=== PATIENT | male | born 1935 | race Caucasian/White ===

== ENCOUNTER 2017-04-18 11:34 | Day surgery (SDC) | payer MEDICARE, OTHER ==
[~2017-04-18] VITALS: Ht 162.6 cm; Wt 78.4 kg
[~2017-04-18 11:34] MED LIST: METF500T4 PO
[2017-04-18] MEDS ORDERED: PLAVIX (12:12)
[2017-04-18] MEDS ORDERED: BENAZEPRIL (12:12)
[2017-04-18] MEDS ORDERED: OLMESARTAN (12:12)
[2017-04-18] MEDS ORDERED: CARVEDILOL (12:12)
[2017-04-18] MEDS ORDERED: CLONIDINE (12:12)
[2017-04-18] MEDS ORDERED: NEXIUM (12:12)
[2017-04-18] MEDS ORDERED: FARXIGA (12:12)
[2017-04-18] MEDS ORDERED: AMLODIPINE (12:12)
[2017-04-18] MEDS ORDERED: GLIPIZIDE (12:12)
[2017-04-18] MEDS ORDERED: TRADJENTA (12:13)
[2017-04-18] MEDS ORDERED: METHIMAZOLE (12:13)
[2017-04-18] MEDS ORDERED: ROSUVASTATIN (12:13)
[2017-04-18 12:14] VITALS: Ht 162.6 cm; Wt 78.4 kg
[2017-04-18 12:53] VITALS: BP 146/71; PULSE 62; RESP 18
--- NOTE | 2017-04-18 13:10 | OPPN ---
Date/Time of Note Date/Time of Note DATE: 04/18/17 TIME: 13:09 Operative Report Preoperative Diagnosis Abdominal pain Chronic heartburn Postoperative Diagnosis Hiatal hernia and reflux esophagitis with erosions Gastritis with erosions Operation/Procedure Performed Esophagogastroduodenoscopy and biopsy Surgeon see signature line retail assistant None Anesthesia: MAC Estimated blood loss: none Transfusion Required none Specimen Gastric mucosal biopsy Grafts/Implants none Complications none ANDRIY MEDINA MD Apr 18, 2017 13:10
--- NOTE | 2017-04-18 13:10 | OPPN ---
Date/Time of Note Date/Time of Note DATE: 04/18/17 TIME: 13:09 Operative Report Preoperative Diagnosis Abdominal pain Chronic heartburn Postoperative Diagnosis Hiatal hernia and reflux esophagitis with erosions Gastritis with erosions Operation/Procedure Performed Esophagogastroduodenoscopy and biopsy Surgeon see signature line assistant production editor None Anesthesia: MAC Estimated blood loss: none Transfusion Required none Specimen Gastric mucosal biopsy Grafts/Implants none Complications none ANDRIY MEDINA MD Apr 18, 2017 13:10
--- NOTE | 2017-04-18 13:10 | OPPN ---
Date/Time of Note Date/Time of Note DATE: 04/18/17 TIME: 13:09 Operative Report Preoperative Diagnosis Abdominal pain Chronic heartburn Postoperative Diagnosis Hiatal hernia and reflux esophagitis with erosions Gastritis with erosions Operation/Procedure Performed Esophagogastroduodenoscopy and biopsy Surgeon see signature line assistant fitness manager None Anesthesia: MAC Estimated blood loss: none Transfusion Required none Specimen Gastric mucosal biopsy Grafts/Implants none Complications none ANDRIY MEDINA MD Apr 18, 2017 13:10
[2017-04-18 13:39] VITALS: BP 125/72; RESP 14
--- NOTE | 2017-04-19 05:58 | GILP ---
DATE OF PROCEDURE: NAME OF PROCEDURES: Esophagogastroduodenoscopy and biopsy. SURGEON: Andriy King MD. PREOPERATIVE DIAGNOSES: 1. Abdominal pain. 2. Chronic heartburn. POSTOPERATIVE DIAGNOSES: 1. Hiatal hernia. 2. Reflux esophagitis and erosions. 3. Gastritis with erosions. 4. Gastric mucosal biopsies were taken for Helicobacter pylori test. INDICATION FOR THE PROCEDURE: Mr. Greta Hanley is an 82-year-old male patient who had chronic heartburn and upper abdominal pain, not responding to therapy. The patient was scheduled for endosc opic examination for further evaluation. The procedure and possible complications were well explained to the patient. The patient understood and consented to the procedure. DESCRIPTION OF PROCEDURE: Under the influence of anesthesia, the gastroscope was carefully introduc ed into the esophagus and under direct vision, it was advanced to the stomach and through the pyloru s into the duodenal bulb and descending duodenum. FINDINGS: ESOPHAGUS: The patient had hiatal hernia with reflux esophagitis and erosions. STOMACH: He had gastritis with erosions. Gastric mucosal biopsies were taken for H. pylori test. Duodenum was normal. The patient tolerated the procedure very well and there was no complication from the procedure. At the end of the procedure, he was awake with stable vital signs and he was discharged home to the car e of his family. IMPRESSION: Please see postoperative diagnosis. PLAN: 1. Continue Nexium. 2. Add Zantac 300 mg p.o. at bedtime. 3. Await H. pylori test report. Dictated By: ANDRIY RUCKER/ELOY Conf#: [id number] DID#: [id number]
--- NOTE | 2017-04-19 12:43 | CONS ---
DATE OF ADMISSION: 04/18/2017 DATE OF CONSULTATION: Patient Name: ELHAM WOODRUFF I thank you very much for this kind referral. is an 82-year-old male patient who has been referred to me for further evaluation of upper abdominal pain and chronic heartburn, not responding to therapy with Nexium. He is not taking any nonsteroidal anti-inflammatory agents. His appetite has been good and there is no history of signif icant weight loss. The patient also complains of change in the bowel habit with constipation and bl oating. He had a colonoscopy done 5 years ago and no colon neoplasm was identified. He denies any history of rectal bleeding. No history of gallstones or liver disease. He is hypertensive. He has diabetes. No history of heart disease or lung problem or kidney disease. He has got hyperlipidemi a. He has hyperthyroidism. SOCIAL HISTORY: He is a nonsmoker, does not abuse alcohol. FAMILY HISTORY: No family history of gastrointestinal tract neoplasm. ALLERGIES: HE STATES HE IS ALLERGIC TO ASPIRIN. MEDICATIONS: 1. Nexium 40 mg p.o. daily. 2. Plavix 75 mg p.o. daily. 3. Olmesartan 40 mg p.o. daily. 4. Benazepril 20 mg p.o. daily. 5. Carvedilol 12.5 mg p.o. daily. 6. Amlodipine 40 mg p.o. daily. 7. Clonidine 0.1 mg patch daily. 8. Metformin 850 mg p.o. b.i.d. 9. Glipizide 10 mg p.o. daily. 10. Farxiga 5 mg p.o. daily. 11. Tradjenta 5 mg p.o. daily. 12. Rosuvastatin 10 mg p.o. daily. 13. Methimazole 10 mg p.o. daily. PHYSICAL EXAMINATION: VITAL SIGNS: He is 5 feet 3 inches tall and he weighs 180 pounds. Blood pressure is 146/82. HEART: Normal heart sounds. LUNGS: Clear. ABDOMEN: Soft, no masses. The patient has got epigastric tenderness. Normal bowel sounds. NEUROLOGIC: Normal neurological exam. IMPRESSION: 1. Upper abdominal pain and chronic heartburn, not responding to therapy with Nexium. 2. Constipation and bloating. 3. The patient had colonoscopy 5 years ago and no colon neoplasm was identified. 4. Hypertension. 5. Diabetes mellitus. 6. Hyperlipidemia. 7. Hyperthyroidism. 8. Obesity. 9. The patient is on Plavix. PLAN: 1. Endoscopic examination for further evaluation. 2. Linzess 145 mcg p.o. daily a.m. for constipation and bloating. 3. The patient was advised to lose weight. 4. Dietary consultation was recommended. 5. Follow up with the primary MD for the management of elevated BMI and hypertension. 6. Because of the patient's age and multiple medical problems, he needs monitored anesthesia care. The procedure and possible complications are well explained to the patient. He understands and cons ents to the procedure. I thank you once again. With warmest personal regards. Dictated By: ANDRIY RUCKER/ELOY Conf#: [id number] DID#: [id number]
== END 2017-04-18 14:26 | disposition home or self-care (01) ==
LOC: GIL 11:34
PROVIDERS: ATTEND Internal Medicine Gastroenterology
DX: K29.70 Gastritis, unspecified, without bleeding (principal); K21.0 Gastro-esophageal reflux disease with esophagitis; K44.9 Diaphragmatic hernia without obstruction or gangrene; I10 Essential (primary) hypertension; E78.5 Hyperlipidemia, unspecified; E03.9 Hypothyroidism, unspecified; E11.9 Type 2 diabetes mellitus without complications; Z79.02 Long term (current) use of antithrombotics/antiplatelets; Z79.84 Long term (current) use of oral hypoglycemic drugs; E66.9 Obesity, unspecified; Z68.29 Body mass index [BMI] 29.0-29.9, adult; Z88.6 Allergy status to analgesic agent
CPT/HCPCS: 82962; 87081